=== PATIENT | female | born 1960 | race African-American/Black ===

== ENCOUNTER 2017-02-20 10:24 | Emergency (ER) | payer MEDICAID ==
[~2017-02-20] VITALS: Ht 200.7 cm; Wt 90.0 kg
[2017-02-20 10:33] VITALS: BP 180/99
== END 2017-02-20 19:00 | disposition left against medical advice (07) ==
LOC: ER 10:24
DX: R05 Cough (principal); Z53.21 Procedure and treatment not carried out due to patient leaving prior to being seen by health care provider